=== PATIENT | male | born 1990 | race Caucasian/White ===

== ENCOUNTER 2018-03-02 17:21 | Emergency (ER) | payer MEDICAID ==
[~2018-03-02] VITALS: Ht 182.9 cm; Wt 75.0 kg
[~2018-03-02 17:21] MED LIST: HYDR-4383 PO; IBUPROFEN 600MG PO; NO HOME MEDS
[2018-03-02 17:27] VITALS: BP 131/50
== END 2018-03-02 20:27 | disposition home or self-care (01) ==
LOC: ER 17:22
DX: S40.021A Contusion of right upper arm, initial encounter (principal); F12.90 Cannabis use, unspecified, uncomplicated; F15.90 Other stimulant use, unspecified, uncomplicated; Z91.012 Allergy to eggs; Z79.899 Other long term (current) drug therapy; V09.9XXA Pedestrian injured in unspecified transport accident, initial encounter; Y93.01 Activity, walking, marching and hiking; Y92.488 Other paved roadways as the place of occurrence of the external cause; Y99.8 Other external cause status
CPT/HCPCS: 29125; 73090; 73130; 99283

== ENCOUNTER 2020-08-25 14:38 | Emergency (ER) | payer MEDICAID ==
[~2020-08-25] VITALS: Ht 180.3 cm; Wt 96.4 kg
[2020-08-25 14:44] VITALS: BP 134/78
[2020-08-25] MEDS ORDERED: LIDOcaine/PRILOcaine 5gm cream TP ONE (15:00)
[2020-08-25] MEDS ORDERED: bacitracin 15gm ointment TP ONE (15:00)
--- NOTE | 2020-08-25 15:15 | NUR ---
PT HAS HAD THE EMLA CREAM APPLIED TO LEFT ELBOW AND KNOWS THAT IT NEEDS TO SIT ON THERE FOR 30 TO 45 MIN BEFORE WE ARE ABLE TO START CLEANING ANY ROCKS AND OR GRAVEL OUT OF THE WOUND.
--- NOTE | 2020-08-25 15:55 | NUR ---
PER REGISTRATION PT WALKS OUT BECAUSE HE DOESNT WANT TO WAIT ANY LONGER FOR FURTHER CLEANING AND TREATMENT TO HIS WOUNDS. PT STATES HE DIDNT WANT TO COME HERE ANYWAY BUT HIS MOTHER TOLD HIM TO COME HERE.
== END 2020-08-25 16:25 | disposition left against medical advice (07) ==
LOC: ER 14:39
DX: S40.811A Abrasion of right upper arm, initial encounter (principal); S40.812A Abrasion of left upper arm, initial encounter; S80.812A Abrasion, left lower leg, initial encounter; S80.811A Abrasion, right lower leg, initial encounter; M25.561 Pain in right knee; F12.90 Cannabis use, unspecified, uncomplicated; F15.90 Other stimulant use, unspecified, uncomplicated; Z72.89 Other problems related to lifestyle; Z91.012 Allergy to eggs; Z79.899 Other long term (current) drug therapy; W19.XXXA Unspecified fall, initial encounter; Y93.89 Activity, other specified; Y92.89 Other specified places as the place of occurrence of the external cause; Y99.8 Other external cause status
CPT/HCPCS: 99283